=== PATIENT | female | born 1960 | race Caucasian/White ===

== ENCOUNTER 2020-02-10 16:34 | Emergency (ER) | payer MEDICARE ==
[~2020-02-10] VITALS: Ht 160 cm; Wt 47.6 kg
[2020-02-10 17:47] LABS: BASOPHILS ABSOLUTE AUTO 0.02 K/mm3 (0.00-0.23); BASOPHILS PERCENT AUTO 0 % (0-2); EOSINOPHILS PERCENT AUTO 0 % (0-6); Hematocrit 39.2 % (33.0-51.0); Hemoglobin 13.3 g/dL (11.5-16.0); IMMATURE GRAN ABSOLUTE AUTO 0.04 K/mm3 (0.00-0.10); IMMATURE GRAN PERCENT AUTO 0 % (0-1); LYMPHOCYTES ABSOLUTE AUTO 1.14 K/mm3 (0.84-5.20); LYMPHOCYTES PERCENT AUTO 8 % (21-46); MONOCYTES ABSOLUTE AUTO 1.13 K/mm3 (0.16-1.47); MONOCYTES PERCENT AUTO 8 % (4-13); Mean Corpuscular HGB 30.8 pg (26.0-34.0); Mean Corpuscular HGB Conc 33.9 g/dL (31.5-36.5); Mean Corpuscular Volume 91 fL (80-100); Mean Platelet Volume 9.8 fL (9.1-12.4); NEUTROPHILS ABSOLUTE AUTO 12.36 K/mm3 (1.96-9.15); NEUTROPHILS PERCENT AUTO 84 % (41-73); Platelet Count 222 K/mm3 (150-400); RDW Coefficient Variation 11.9 % (11.7-14.2); RDW Standard Deviation 40.1 fL (35.1-46.3); Red Blood Cell Count 4.32 M/mm3 (3.80-5.20); White Blood Cell Count 14.69 K/mm3 (4.00-11.30)
[2020-02-10 18:05] LABS: Albumin, Blood 4.2 g/dL (3.4-5.0); Albumin/Globulin Ratio 1.3 (0.8-1.8); Bilirubin, Total 0.8 mg/dL (0.1-1.0); Bun/Creatinine Ratio 11.2 (12.0-20.0); Calcium, Blood 9.3 mg/dL (8.5-10.1); Creatinine, Blood 1.34 mg/dL (0.40-1.00); Globulin, Blood 3.2 g/dL (2.2-4.0); Magnesium, Blood 2.6 mg/dL (1.6-2.4); Potassium, Blood 3.6 mmol/L (3.5-5.5); Total Protein, Blood 7.4 g/dL (6.4-8.2)
[2020-02-11] MEDS ORDERED: GABAPENTIN CAP 100 (16:59)
[2020-02-11] MEDS ORDERED: OMNICAP TABLET0.4 MG PO (16:59)
[2020-02-11] MEDS ORDERED: Methotrexate2.5 MG PO (16:59)
[2020-02-11] MEDS ORDERED: Keppra750 MG PO (16:59)
[2020-02-11] MEDS ORDERED: TRAZODONE TAB 50M (16:59)
== END 2020-02-10 19:51 | disposition home or self-care (01) ==
LOC: ER 16:34
PROVIDERS: Emergency Medicine
DX: R51 Headache (principal); R42 Dizziness and giddiness; N28.9 Disorder of kidney and ureter, unspecified; F17.200 Nicotine dependence, unspecified, uncomplicated
CPT/HCPCS: 70450; 80053; 83735; 85025; 99284-25

== ENCOUNTER 2020-02-11 16:32 | Emergency (ER) | payer MEDICARE ==
[2020-02-11] MEDS ORDERED: Methotrexate2.5 MG PO (16:59)
[2020-02-11] MEDS ORDERED: TRAZODONE TAB 50M (16:59)
[2020-02-11] MEDS ORDERED: OMNICAP TABLET0.4 MG PO (16:59)
[2020-02-11] MEDS ORDERED: GABAPENTIN CAP 100 (16:59)
[2020-02-11] MEDS ORDERED: Keppra750 MG PO (16:59)
== END 2020-02-11 17:40 | disposition home or self-care (01) ==
DX: S90.822A Blister (nonthermal), left foot, initial encounter (principal); S90.821A Blister (nonthermal), right foot, initial encounter; F20.9 Schizophrenia, unspecified; Z79.899 Other long term (current) drug therapy; F17.210 Nicotine dependence, cigarettes, uncomplicated; X58.XXXA Exposure to other specified factors, initial encounter

== ENCOUNTER 2021-01-27 19:24 | Emergency (ER) | payer MEDICARE, OTHER ==
[~2021-01-27] VITALS: Ht 160 cm; Wt 45.4 kg
[~2021-01-27 19:24] MED LIST: GABAPENTIN CAP 100; Keppra750 MG PO; Methotrexate2.5 MG PO; Micro-K8 MEQ PO; OLAN10 PO; OLAN5 PO; OMNICAP TABLET0.4 MG PO; TRAZODONE TAB 50M
[2021-01-27] MEDS ORDERED: PHENY100ER PO (20:41)
[2021-01-27] MEDS ORDERED: GABA100 PO (20:42)
[2021-01-27 20:47] LABS: BASOPHILS ABSOLUTE AUTO 0.03 K/mm3 (0.00-0.23); BASOPHILS PERCENT AUTO 0 % (0-2); EOSINOPHILS ABSOLUTE AUTO 0.32 K/mm3 (0.00-0.68); EOSINOPHILS PERCENT AUTO 5 % (0-6); Hematocrit 36.2 % (33.0-51.0); Hemoglobin 12.2 g/dL (11.5-16.0); IMMATURE GRAN ABSOLUTE AUTO 0.02 K/mm3 (0.00-0.10); IMMATURE GRAN PERCENT AUTO 0 % (0-1); LYMPHOCYTES ABSOLUTE AUTO 1.53 K/mm3 (0.84-5.20); LYMPHOCYTES PERCENT AUTO 22 % (21-46); MONOCYTES ABSOLUTE AUTO 0.49 K/mm3 (0.16-1.47); MONOCYTES PERCENT AUTO 7 % (4-13); Mean Corpuscular HGB 30.4 pg (26.0-34.0); Mean Corpuscular HGB Conc 33.7 g/dL (31.5-36.5); Mean Corpuscular Volume 90 fL (80-100); Mean Platelet Volume 10.4 fL (9.1-12.4); NEUTROPHILS ABSOLUTE AUTO 4.48 K/mm3 (1.96-9.15); NEUTROPHILS PERCENT AUTO 65 % (41-73); Platelet Count 208 K/mm3 (150-400); RDW Coefficient Variation 11.9 % (11.7-14.2); RDW Standard Deviation 39.5 fL (35.1-46.3); Red Blood Cell Count 4.01 M/mm3 (3.80-5.20); White Blood Cell Count 6.87 K/mm3 (4.00-11.30)
[2021-01-27 21:03] LABS: Alanine Aminotransfer (ALT/SGP 36 U/L (12-78); Albumin, Blood 3.6 g/dL (3.4-5.0); Albumin/Globulin Ratio 1.2 (0.8-1.8); Alk Phos 83 U/L (50-136); Anion Gap 3 mmol/L (6-16); Aspartate Aminotrans (AST/SGOT 30 U/L (12-37); Bilirubin, Total 0.3 mg/dL (0.1-1.0); Blood Urea Nitrogen 8 mg/dL (8-24); Bun/Creatinine Ratio 11.3 (12.0-20.0); CO2, Blood 31 mmol/L (21-32); Calcium, Blood 8.6 mg/dL (8.5-10.1); Chloride, Blood 106 mmol/L (98-108); Creatinine, Blood 0.71 mg/dL (0.40-1.00); Glomerular Filtration Rate >60 (60-); Glucose, Blood 86 mg/dL (70-99); Potassium, Blood 3.4 mmol/L (3.5-5.5); Sodium, Blood 140 mmol/L (136-145); Total Protein, Blood 6.6 g/dL (6.4-8.2); Troponin I <0.015 ng/mL (0.000-0.040)
== END 2021-01-27 21:42 | disposition home or self-care (01) ==
LOC: ER 19:24
PROVIDERS: Emergency Medicine
DX: R07.9 Chest pain, unspecified (principal); F17.210 Nicotine dependence, cigarettes, uncomplicated; Z79.899 Other long term (current) drug therapy
CPT/HCPCS: 71045; 80053; 84484; 85025; 93005; 93010; 99284-25

== ENCOUNTER 2021-06-03 15:06 | Observation (INO) | payer MEDICARE, OTHER ==
[~2021-06-03] VITALS: Ht 160 cm; Wt 45.4 kg
[~2021-06-03 15:06] MED LIST changes: +GABA100 PO; +PHENY100ER PO
[2021-06-03] MEDS ORDERED: TRAZ50 PO (16:14)
[2021-06-03] MEDS ORDERED: GABA100 PO (16:14)
[2021-06-03 16:54] LABS: Source, Urine Clean Catch
[2021-06-03 16:59] LABS: Appearance, Urine Clear (Clear); Bilirubin, Urine Neg (Neg); Blood, Urine Neg (Neg); Color, Urine Yellow (P-Yellow); Glucose Qualitative, Urine Neg (Neg); Ketones, Urine Neg (Neg); Leukocyte Esterase, Urine Neg (Neg); Nitrite, Urine Neg (Neg); Protein, Urine Neg (Neg); Specific Gravity, Urine 1.015 (1.003-1.022); Urobilinogen, Urine NORM (Normal)
[2021-06-03 17:13] LABS: U Amphetamine Screen Not Detected; U Barbituate Screen Not Detected; U Benzodiazapine Screen Not Detected; U Buprenorphine Screen Not Detected; U Cannabinoids Screen Not Detected; U Cocaine Screen Not Detected; U Methadone Screen Not Detected; U Methamphetamine Screen Not Detected; U Opiates Screen Not Detected; U Oxycodone Screen Not Detected; U Phencyclidine Screen Not Detected; U Propoxyphene Screen Not Detected
[2021-06-03 17:32] LABS: BASOPHILS ABSOLUTE AUTO 0.03 K/mm3 (0.00-0.23); BASOPHILS PERCENT AUTO 0 % (0-2); EOSINOPHILS ABSOLUTE AUTO 0.25 K/mm3 (0.00-0.68); EOSINOPHILS PERCENT AUTO 3 % (0-6); Hematocrit 38.2 % (33.0-51.0); Hemoglobin 12.9 g/dL (11.5-16.0); IMMATURE GRAN ABSOLUTE AUTO 0.01 K/mm3 (0.00-0.10); IMMATURE GRAN PERCENT AUTO 0 % (0-1); LYMPHOCYTES ABSOLUTE AUTO 1.19 K/mm3 (0.84-5.20); LYMPHOCYTES PERCENT AUTO 16 % (21-46); MONOCYTES ABSOLUTE AUTO 0.45 K/mm3 (0.16-1.47); MONOCYTES PERCENT AUTO 6 % (4-13); Mean Corpuscular HGB 30.6 pg (26.0-34.0); Mean Corpuscular HGB Conc 33.8 g/dL (31.5-36.5); Mean Corpuscular Volume 91 fL (80-100); Mean Platelet Volume 9.9 fL (9.1-12.4); NEUTROPHILS ABSOLUTE AUTO 5.37 K/mm3 (1.96-9.15); NEUTROPHILS PERCENT AUTO 74 % (41-73); Platelet Count 221 K/mm3 (150-400); RDW Coefficient Variation 12.5 % (11.7-14.2); RDW Standard Deviation 41.2 fL (35.1-46.3); Red Blood Cell Count 4.21 M/mm3 (3.80-5.20)
[2021-06-03 18:12] LABS: Ethanol (Alcohol), Blood, Med <3 mg/dL
[2021-06-03 18:29] LABS: Acetaminophen, Random <2.0 ug/mL (10.0-30.0)
[2021-06-03 19:15] LABS: Alanine Aminotransfer (ALT/SGP 33 U/L (12-78); Albumin, Blood 4.5 g/dL (3.4-5.0); Albumin/Globulin Ratio 1.4 (0.8-1.8); Alk Phos 102 U/L (50-136); Anion Gap 6 mmol/L (6-16); Aspartate Aminotrans (AST/SGOT 22 U/L (12-37); Bilirubin, Total 0.6 mg/dL (0.1-1.0); Blood Urea Nitrogen 6 mg/dL (8-24); Bun/Creatinine Ratio 7.8 (12.0-20.0); CO2, Blood 26 mmol/L (21-32); Chloride, Blood 108 mmol/L (98-108); Creatinine, Blood 0.77 mg/dL (0.40-1.00); Globulin, Blood 3.2 g/dL (2.2-4.0); Glomerular Filtration Rate >60 (60-); Glucose, Blood 94 mg/dL (70-99); Potassium, Blood 3.2 mmol/L (3.5-5.5); Sodium, Blood 140 mmol/L (136-145); Total Protein, Blood 7.7 g/dL (6.4-8.2)
[2021-06-03 19:35] LABS: SARS-Cov-2 (COVID-19) PCR, MMC NEGATIVE (NEGATIVE)
== END 2021-06-04 15:00 ==
LOC: ER 15:06 → EOR 15:07
PROVIDERS: Emergency Medicine Emergency Medical Services; ADMIT Student in an Organized Health Care Education/Training Program
DX: F20.9 Schizophrenia, unspecified (principal); F17.210 Nicotine dependence, cigarettes, uncomplicated; Z20.822 Contact with and (suspected) exposure to COVID-19; G40.409 Other generalized epilepsy and epileptic syndromes, not intractable, without status epilepticus; L93.0 Discoid lupus erythematosus
CPT/HCPCS: 80053; 81003; 85025; A9270; G0480; J1200; J1630; J2060; U0004

== ENCOUNTER 2022-12-24 18:47 | Observation (INO) | payer MEDICARE, OTHER ==
[~2022-12-24] VITALS: Ht 160 cm; Wt 49.9 kg
[~2022-12-24 18:47] MED LIST changes: +TRAZ50 PO
[2022-12-24] MEDS ORDERED: RISP3 PO (19:25)
[2022-12-24] MEDS ORDERED: ATOR10 PO (19:25)
[2022-12-24] MEDS ORDERED: TRAZ100 PO (19:26)
[2022-12-24] MEDS ORDERED: GABA300 PO (19:26)
[2022-12-24 20:03] LABS: Source, Urine Clean Catch
[2022-12-24] MEDS ORDERED: TRAZ50 PO (20:06)
[2022-12-24 20:14] LABS: BASOPHILS ABSOLUTE AUTO 0.03 K/mm3 (0.00-0.23); BASOPHILS PERCENT AUTO 0 % (0-2); EOSINOPHILS ABSOLUTE AUTO 0.09 K/mm3 (0.00-0.68); EOSINOPHILS PERCENT AUTO 1 % (0-6); Hematocrit 39.5 % (33.0-51.0); Hemoglobin 13.3 g/dL (11.5-16.0); IMMATURE GRAN ABSOLUTE AUTO 0.02 K/mm3 (0.00-0.10); IMMATURE GRAN PERCENT AUTO 0 % (0-1); LYMPHOCYTES PERCENT AUTO 19 % (21-46); MONOCYTES ABSOLUTE AUTO 0.52 K/mm3 (0.16-1.47); MONOCYTES PERCENT AUTO 7 % (4-13); Mean Corpuscular HGB 30.2 pg (26.0-34.0); Mean Corpuscular HGB Conc 33.7 g/dL (31.5-36.5); Mean Corpuscular Volume 90 fL (80-100); Mean Platelet Volume 9.5 fL (9.1-12.4); NEUTROPHILS ABSOLUTE AUTO 5.59 K/mm3 (1.96-9.15); NEUTROPHILS PERCENT AUTO 72 % (41-73); Platelet Count 271 K/mm3 (150-400); RDW Coefficient Variation 12.9 % (11.7-14.2); Red Blood Cell Count 4.41 M/mm3 (3.80-5.20); White Blood Cell Count 7.75 K/mm3 (4.00-11.30)
[2022-12-24 20:24] LABS: Bilirubin, Urine Neg (Neg); Blood, Urine Neg (Neg); Glucose Qualitative, Urine Neg (Neg); Ketones, Urine 2+ (Neg); Leukocyte Esterase, Urine 1+ (Neg); Nitrite, Urine Neg (Neg); Protein, Urine 2+ (Neg); Urobilinogen, Urine 1+ (Normal)
[2022-12-24 20:45] LABS: Ethanol (Alcohol), Blood, Med <3 mg/dL; Salicylate 3.2 mg/dL (2.8-20.0)
[2022-12-24 20:47] LABS: U Amphetamine Screen Not Detected; U Barbituate Screen Not Detected; U Benzodiazapine Screen Not Detected; U Buprenorphine Screen Not Detected; U Cannabinoids Screen Not Detected; U Cocaine Screen Not Detected; U Methadone Screen Not Detected; U Methamphetamine Screen Not Detected; U Opiates Screen Not Detected; U Oxycodone Screen Not Detected; U Phencyclidine Screen Not Detected; U Propoxyphene Screen Not Detected
[2022-12-24 20:53] LABS: Appearance, Urine Hazy (Clear); Color, Urine Yellow (P-Yellow)
[2022-12-24 20:54] LABS: Amorphous Light (0-Heavy); Bacteria Rare /hpf; Mucus Mod (0-Heavy); Red Blood Cells, Urine Not Seen /hpf (0-2); Squamous Epithelial Cells Few /hpf (Few); White Blood Cells, Urine 0-2 /hpf (0-5)
[2022-12-24 21:03] LABS: Acetaminophen, Random <2.0 ug/mL (10.0-30.0); Alanine Aminotransfer (ALT/SGP 27 U/L (12-78); Albumin, Blood 4.4 g/dL (3.4-5.0); Albumin/Globulin Ratio 1.1 (0.8-1.8); Alk Phos 114 U/L (50-136); Anion Gap 5 mmol/L (6-16); Aspartate Aminotrans (AST/SGOT 19 U/L (12-37); Bilirubin, Total 0.6 mg/dL (0.1-1.0); Blood Urea Nitrogen 11 mg/dL (8-24); Bun/Creatinine Ratio 15.8 (12.0-20.0); CO2, Blood 28 mmol/L (21-32); Calcium, Blood 9.3 mg/dL (8.5-10.1); Chloride, Blood 107 mmol/L (98-108); Globulin, Blood 3.9 g/dL (2.2-4.0); Glomerular Filtration Rate 99 (60-); Glucose, Blood 95 mg/dL (70-99); Potassium, Blood 3.7 mmol/L (3.5-5.5); Sodium, Blood 140 mmol/L (136-145); Total Protein, Blood 8.3 g/dL (6.4-8.2)
[2022-12-24 21:19] LABS: Influenza A, PCR NEGATIVE (NEGATIVE); Influenza B, PCR NEGATIVE (NEGATIVE); Resp Syncytial Virus, PCR NEGATIVE (NEGATIVE); SARS-Cov-2 (COVID-19) PCR, MMC NEGATIVE (NEGATIVE)
== END 2022-12-26 18:37 ==
LOC: ER 18:47 → EOR 18:48
PROVIDERS: Student in an Organized Health Care Education/Training Program; ADMIT Student in an Organized Health Care Education/Training Program
DX: R45.851 Suicidal ideations (principal); Z20.822 Contact with and (suspected) exposure to COVID-19
CPT/HCPCS: 0241U; 80053; 81001; 81025; 83690; 85025; 93005; 93010; A9270; G0378; G0480

== ENCOUNTER 2023-01-26 03:08 | Emergency (ER) | payer MEDICARE, OTHER ==
[~2023-01-26] VITALS: Ht 160 cm; Wt 57.1 kg
[~2023-01-26 03:08] MED LIST changes: +ATOR10 PO; +GABA300 PO; +RISP3 PO; +TRAZ100 PO
[2023-01-26] MEDS ORDERED: METR500 PO (04:13)
[2023-01-26 05:32] VITALS: BP 141/72
== END 2023-01-26 09:52 | disposition home or self-care (01) ==
LOC: ER 03:08
DX: T74.21XA Adult sexual abuse, confirmed, initial encounter (principal); F17.210 Nicotine dependence, cigarettes, uncomplicated; Z79.899 Other long term (current) drug therapy
CPT/HCPCS: A9270; J0696

== ENCOUNTER → 2023-02-11 | Outpatient (CLI) | payer MEDICARE ==
[~2023-02-11] MED LIST changes: +DOC250 PO; +METR500; +METR500 PO; +MIRALAX1714 PO; +PRAHYD1AE TOP; +TRUVADA 100 MG1 EAC1 PO
== END | disposition home or self-care (01) ==
LOC: LAB SHORT 13:30 → LAB 13:30
DX: R82.998 Other abnormal findings in urine (principal)
CPT/HCPCS: 87086

== ENCOUNTER 2023-11-03 13:28 | Emergency (ER) | payer MEDICARE, OTHER ==
[~2023-11-03] VITALS: Ht 160 cm; Wt 45.4 kg
[2023-11-03] MEDS ORDERED: NAPR500EC (13:54)
[2023-11-03] MEDS ORDERED: CefTRIAXone 500 MG Vial IM ONE (14:50)
[2023-11-03] MEDS ORDERED: Azithromycin 250 MG Tab PO ONE (14:50)
[2023-11-03] MEDS ORDERED: MetroNIDAZOLE 500 MG Tab PO ONE (14:50)
[2023-11-03] MEDS ORDERED: Ondansetron 4 MG SoluTab MM ONE (14:50)
[2023-11-03] MEDS ORDERED: Acetaminophen 500 MG Tab PO ONE (14:50)
[2023-11-03 14:55] LABS: Source, Urine Clean Catch
[2023-11-03 15:03] LABS: Appearance, Urine Clear (Clear); Bilirubin, Urine Neg (Neg); Blood, Urine Neg (Neg); Glucose Qualitative, Urine Neg (Neg); Ketones, Urine Neg (Neg); Leukocyte Esterase, Urine 2+ (Neg); Nitrite, Urine Neg (Neg); Protein, Urine 1+ (Neg); Urobilinogen, Urine NORM (Normal); pH, Urine 6.5 (5.0-8.0)
[2023-11-03 15:25] LABS: Color, Urine Pale Yellow (P-Yellow)
[2023-11-03 15:26] LABS: Bacteria Few /hpf; Red Blood Cells, Urine 0-2 /hpf (0-2); Squamous Epithelial Cells Few /hpf (Few)
[2023-11-03 15:27] LABS: Transitional Epithelial Cells Rare /hpf (0-Rare)
[2023-11-03 15:30] LABS: U Amphetamine Screen Not Detected; U Barbituate Screen Not Detected; U Benzodiazapine Screen Not Detected; U Buprenorphine Screen Not Detected; U Cannabinoids Screen Not Detected; U Cocaine Screen Not Detected; U Methadone Screen Not Detected; U Methamphetamine Screen Not Detected; U Opiates Screen Not Detected; U Oxycodone Screen Not Detected; U Phencyclidine Screen Not Detected
[2023-11-03] MEDS ORDERED: EMTRICITABINE-1 EAC5 PO ×2 (15:36→15:37)
[2023-11-03] MEDS ORDERED: [UNRECOGNIZED DRUG - OTHER] PO ×2 (15:36→15:37)
[2023-11-03 16:15] VITALS: BP 129/66
[2023-11-03 16:17] LABS: BASOPHILS ABSOLUTE AUTO 0.04 K/mm3 (0.00-0.23); BASOPHILS PERCENT AUTO 1 % (0-2); EOSINOPHILS ABSOLUTE AUTO 0.41 K/mm3 (0.00-0.68); EOSINOPHILS PERCENT AUTO 6 % (0-6); Hematocrit 38.6 % (33.0-51.0); Hemoglobin 12.9 g/dL (11.5-16.0); IMMATURE GRAN ABSOLUTE AUTO 0.01 K/mm3 (0.00-0.10); IMMATURE GRAN PERCENT AUTO 0 % (0-1); LYMPHOCYTES ABSOLUTE AUTO 1.48 K/mm3 (0.84-5.20); LYMPHOCYTES PERCENT AUTO 21 % (21-46); MONOCYTES ABSOLUTE AUTO 0.33 K/mm3 (0.16-1.47); MONOCYTES PERCENT AUTO 5 % (4-13); Mean Corpuscular HGB 29.4 pg (26.0-34.0); Mean Corpuscular HGB Conc 33.4 g/dL (31.5-36.5); Mean Corpuscular Volume 88 fL (80-100); NEUTROPHILS ABSOLUTE AUTO 4.75 K/mm3 (1.96-9.15); NEUTROPHILS PERCENT AUTO 68 % (41-73); Platelet Count 232 K/mm3 (150-400); RDW Coefficient Variation 12.4 % (11.7-14.2); RDW Standard Deviation 40.5 fL (35.1-46.3); Red Blood Cell Count 4.39 M/mm3 (3.80-5.20); White Blood Cell Count 7.02 K/mm3 (4.00-11.30)
[2023-11-03 16:40] LABS: Anion Gap Unable to Calculate mmol/L (6-16); Blood Urea Nitrogen 12 mg/dL (8-24); Bun/Creatinine Ratio 17.9 (12.0-20.0); CO2, Blood 31 mmol/L (21-32); Calcium, Blood 9.6 mg/dL (8.5-10.1); Chloride, Blood 109 mmol/L (98-108); Creatinine, Blood 0.67 mg/dL (0.40-1.00); Glomerular Filtration Rate 99 (60-); Glucose, Blood 139 mg/dL (70-99); Sodium, Blood 139 mmol/L (136-145)
[2023-11-03] MEDS ORDERED: Metoclopramide HCl 10 MG Tab PO ONE (17:25)
[2023-11-03] MEDS ORDERED: Ibuprofen 600 MG Tab PO ONE (17:30)
[2023-11-03 17:51] LABS: Alanine Aminotransfer (ALT/SGP 23 U/L (12-78); Albumin/Globulin Ratio 1.1 (0.8-1.8); Alk Phos 143 U/L (50-136); Aspartate Aminotrans (AST/SGOT 19 U/L (12-37); Bilirubin, Direct <0.1 mg/dL (0.0-0.3); Bilirubin, Indirect Unable to Calculate mg/dL (0.1-0.7); Bilirubin, Total 0.3 mg/dL (0.1-1.0); Globulin, Blood 3.6 g/dL (2.2-4.0); Total Protein, Blood 7.6 g/dL (6.4-8.2)
== END 2023-11-03 17:37 | disposition home or self-care (01) ==
LOC: ER 13:28
PROVIDERS: Student in an Organized Health Care Education/Training Program
DX: T76.21XA Adult sexual abuse, suspected, initial encounter (principal); S16.1XXA Strain of muscle, fascia and tendon at neck level, initial encounter; S09.90XA Unspecified injury of head, initial encounter; S80.02XA Contusion of left knee, initial encounter; J20.8 Acute bronchitis due to other specified organisms; B97.89 Other viral agents as the cause of diseases classified elsewhere; M48.02 Spinal stenosis, cervical region; F17.210 Nicotine dependence, cigarettes, uncomplicated; M06.9 Rheumatoid arthritis, unspecified; Z79.899 Other long term (current) drug therapy; Y07.9 Unspecified perpetrator of maltreatment and neglect; Y92.009 Unspecified place in unspecified non-institutional (private) residence as the place of occurrence of the external cause; Y93.84 Activity, sleeping
CPT/HCPCS: 70450; 71045; 72125; 80048; 80076; 81001; 85025; 96372; A9270; J0696

== ENCOUNTER 2024-01-26 20:46 | Emergency (ER) | payer MEDICARE, OTHER ==
[~2024-01-26] VITALS: Ht 157.5 cm; Wt 54.4 kg
[~2024-01-26 20:46] MED LIST changes: +EMTRICITABINE-1 EAC5 PO; +LOPE2C PO; +NAPR500EC; +[UNRECOGNIZED DRUG - OTHER] PO
[2024-01-26] MEDS ORDERED: METPRE4DP PO (20:58)
[2024-01-26] MEDS ORDERED: HYDROCODONE-AC1 EA19 PO (20:58)
[2024-01-26] MEDS ORDERED: MetroNIDAZOLE 500 MG Tab PO ONE (22:00)
[2024-01-26] MEDS ORDERED: CefTRIAXone 500 MG Vial IM ONE (22:00)
[2024-01-26] MEDS ORDERED: Azithromycin 250 MG Tab PO ONE (22:00)
[2024-01-26] MEDS ORDERED: Emtricitabine/Tenofovir (TDF) 200-300mg 1 TAB PO ONE (22:05)
[2024-01-26] MEDS ORDERED: EMTRICITABINE-1 EAC1 PO (22:14)
[2024-01-26] MEDS ORDERED: Vibramycin100 MG PO (22:14)
[2024-01-26] MEDS ORDERED: RALT400 PO (22:14)
[2024-01-26 22:47] VITALS: BP 159/73
== END 2024-01-26 22:49 | disposition home or self-care (01) ==
LOC: ER 20:46
DX: T76.21XA Adult sexual abuse, suspected, initial encounter (principal); S70.11XA Contusion of right thigh, initial encounter; Z79.899 Other long term (current) drug therapy; M06.9 Rheumatoid arthritis, unspecified; F17.210 Nicotine dependence, cigarettes, uncomplicated
CPT/HCPCS: 96372; 99284-25; A9270; J0696

== ENCOUNTER → 2024-03-06 | Outpatient (CLI) | payer MEDICARE, OTHER ==
[~2024-03-06] MED LIST changes: +EMTRICITABINE-1 EAC1 PO; +HYDROCODONE-AC1 EA19 PO; +METPRE4DP PO; +RALT400 PO; +Vibramycin100 MG PO
[2024-03-09 13:56] LABS: B PERTUSSIS/PARAPERTUSS SOURCE Nasopharyngeal; BORD PARAPERTUSSIS BY PCR Not Detected; BORDETELLA PERTUSSIS BY PCR Not Detected
== END | disposition home or self-care (01) ==
LOC: LAB 13:48 → LAB SHORT 13:48
PROVIDERS: Physician Assistant
DX: R05.1 Acute cough (principal); R50.9 Fever, unspecified
CPT/HCPCS: 87798

== ENCOUNTER 2024-04-08 19:38 | Emergency (ER) | payer MEDICARE, OTHER ==
[~2024-04-08] VITALS: Ht 160 cm; Wt 54.4 kg
[2024-04-08] MEDS ORDERED: FOLI1 PO (19:55)
[2024-04-08 20:12] LABS: BASOPHILS ABSOLUTE AUTO 0.04 K/mm3 (0.00-0.23); BASOPHILS PERCENT AUTO 1 % (0-2); EOSINOPHILS PERCENT AUTO 4 % (0-6); Hematocrit 29.9 % (33.0-51.0); Hemoglobin 10.2 g/dL (11.5-16.0); IMMATURE GRAN ABSOLUTE AUTO 0.02 K/mm3 (0.00-0.10); IMMATURE GRAN PERCENT AUTO 0 % (0-1); LYMPHOCYTES ABSOLUTE AUTO 1.38 K/mm3 (0.84-5.20); LYMPHOCYTES PERCENT AUTO 18 % (21-46); MONOCYTES ABSOLUTE AUTO 0.57 K/mm3 (0.16-1.47); MONOCYTES PERCENT AUTO 7 % (4-13); Mean Corpuscular HGB 31.7 pg (26.0-34.0); Mean Corpuscular HGB Conc 34.1 g/dL (31.5-36.5); Mean Corpuscular Volume 93 fL (80-100); NEUTROPHILS ABSOLUTE AUTO 5.37 K/mm3 (1.96-9.15); NEUTROPHILS PERCENT AUTO 70 % (41-73); Platelet Count 189 K/mm3 (150-400); RDW Coefficient Variation 13.5 % (11.7-14.2); RDW Standard Deviation 44.7 fL (35.1-46.3); Red Blood Cell Count 3.22 M/mm3 (3.80-5.20); White Blood Cell Count 7.68 K/mm3 (4.00-11.30)
[2024-04-08 20:23] LABS: Bun/Creatinine Ratio 15.3 (12.0-20.0); Calcium, Blood 8.5 mg/dL (8.5-10.1); Creatinine, Blood 0.79 mg/dL (0.40-1.00); Potassium, Blood 3.4 mmol/L (3.5-5.5)
[2024-04-08] MEDS ORDERED: Acetaminophen 325 MG TABLET PO ONE (21:15)
[2024-04-09 01:00] VITALS: BP 139/78
== END 2024-04-09 01:02 | disposition home or self-care (01) ==
LOC: ER 19:38
PROVIDERS: Emergency Medicine
DX: R07.89 Other chest pain (principal); F17.210 Nicotine dependence, cigarettes, uncomplicated; Z79.899 Other long term (current) drug therapy
CPT/HCPCS: 71046; 80048; 84484; 85025; 93005; 93010; 99285-25; A9270

== ENCOUNTER 2024-06-28 17:38 | Inpatient (IN) | payer MEDICARE, OTHER ==
[~2024-06-28] VITALS: Ht 160 cm; Wt 55.2 kg
[~2024-06-28 17:38] MED LIST changes: +DOXY100 PO; +FOLI1 PO; +Flagyl250 MG PO; +TENO300 PO
[2024-06-28 18:02] LABS: BASOPHILS ABSOLUTE AUTO 0.02 K/mm3 (0.00-0.23); BASOPHILS PERCENT AUTO 0 % (0-2); EOSINOPHILS ABSOLUTE AUTO 0.15 K/mm3 (0.00-0.68); EOSINOPHILS PERCENT AUTO 2 % (0-6); Hematocrit 37.3 % (33.0-51.0); Hemoglobin 12.6 g/dL (11.5-16.0); IMMATURE GRAN ABSOLUTE AUTO 0.02 K/mm3 (0.00-0.10); IMMATURE GRAN PERCENT AUTO 0 % (0-1); LYMPHOCYTES ABSOLUTE AUTO 1.05 K/mm3 (0.84-5.20); LYMPHOCYTES PERCENT AUTO 12 % (21-46); MONOCYTES ABSOLUTE AUTO 0.47 K/mm3 (0.16-1.47); MONOCYTES PERCENT AUTO 5 % (4-13); Mean Corpuscular HGB 30.9 pg (26.0-34.0); Mean Corpuscular HGB Conc 33.8 g/dL (31.5-36.5); Mean Corpuscular Volume 91 fL (80-100); Mean Platelet Volume 9.2 fL (9.1-12.4); NEUTROPHILS ABSOLUTE AUTO 7.05 K/mm3 (1.96-9.15); NEUTROPHILS PERCENT AUTO 81 % (41-73); Platelet Count 222 K/mm3 (150-400); RDW Coefficient Variation 12.4 % (11.7-14.2); Red Blood Cell Count 4.08 M/mm3 (3.80-5.20); White Blood Cell Count 8.76 K/mm3 (4.00-11.30)
[2024-06-28] MEDS ORDERED: Morphine Sulfate 4 MG/1 ML Injection IV ONE (18:05)
[2024-06-28] MEDS ORDERED: NS 1,000 ML IV SCH ×2 (18:05→22:35)
[2024-06-28] MEDS ORDERED: Ondansetron HCl 2 MG / ML 2ML Vial IV ONE (18:05)
[2024-06-28 18:16] LABS: Albumin, Blood 3.9 g/dL (3.4-5.0); Albumin/Globulin Ratio 1.1 (0.8-1.8); Bilirubin, Total 0.5 mg/dL (0.1-1.0); Bun/Creatinine Ratio 17.5 (12.0-20.0); Calcium, Blood 9.4 mg/dL (8.5-10.1); Creatinine, Blood 0.74 mg/dL (0.40-1.00); Globulin, Blood 3.4 g/dL (2.2-4.0); Potassium, Blood 3.7 mmol/L (3.5-5.5); Total Protein, Blood 7.3 g/dL (6.4-8.2)
[2024-06-28] MEDS ORDERED: Piperacillin/Tazobactam Sod 4.5 GM in NS 100 ML IV ONE (20:00)
[2024-06-28 20:55] LABS: Source, Urine Clean Catch
[2024-06-28 21:02] LABS: Appearance, Urine Clear (Clear); Bilirubin, Urine Neg (Neg); Blood, Urine 2+ (Neg); Color, Urine Yellow (P-Yellow); Glucose Qualitative, Urine Neg (Neg); Ketones, Urine 2+ (Neg); Leukocyte Esterase, Urine Neg (Neg); Nitrite, Urine Neg (Neg); Protein, Urine 1+ (Neg); Urobilinogen, Urine NORM (Normal)
[2024-06-28 21:27] LABS: Bacteria Rare /hpf; Squamous Epithelial Cells Few /hpf (Few); White Blood Cells, Urine 0-2 /hpf (0-5)
[2024-06-28] MEDS ORDERED: FLU VACC TS2024-25(6MOS UP)/PF 45 MCG/0.5 ML SYRINGE IM SCH (22:35)
[2024-06-28] MEDS ORDERED: Ondansetron HCl 2 MG / ML 2ML Vial IV PRN (22:35)
[2024-06-28] MEDS ORDERED: FentaNYL Citrate 50 MCG/ML 2 ML Injection IV PRN (22:40)
[2024-06-28] MEDS ORDERED: ATOR10 PO (23:42)
--- NOTE | 2024-06-29 00:14 | NUR ---
RECEIVED REPORT FOR PT COMING TO RM 357 FROM ER NURSE NOEMI.
--- NOTE | 2024-06-29 00:28 | NUR ---
ER ADMIT TO 357. PT ARRIVED VIA GURNEY. ALERT AND ORIENTED. ON RA. PT TRANSFERRED TO BED VIA SLIDER SHEET. PT ORIENTED TO AND CALL LT SYSTEM. WILL CONTINUE TO PROVIDE CARE T/O SHIFT. CALL LT IN REACH, BED ALARM ON FOR SAFETY.
[2024-06-29 00:45] VITALS: BP 123/67
--- NOTE | 2024-06-29 01:34 | NUR ---
CONSULT CALLED TO DR LILIYA JONES'S ANSWERING SERVICE.
[2024-06-29] MEDS ORDERED: TRAZ100 PO (01:47)
[2024-06-29] MEDS ORDERED: METHOTREXATE2.510 PO (01:48)
[2024-06-29] MEDS ORDERED: EMTRICITABINE-1 EAC5 PO (01:49)
[2024-06-29] MEDS ORDERED: [UNRECOGNIZED DRUG - CODE] PO (01:49)
[2024-06-29] MEDS ORDERED: FOLI1 PO (01:50)
[2024-06-29] MEDS ORDERED: RALT400 PO (01:52)
[2024-06-29] MEDS ORDERED: Gabapentin 100 MG Cap PO SCH (02:45)
--- NOTE | 2024-06-29 02:50 | NUR ---
GABAPENTIN 100 MG GIVEN TO PT. PT RESTING QUIETLY. CALL LT IN REACH. BED ALARMED FOR SAFETY.
[2024-06-29 03:12] VITALS: BP 142/68
--- NOTE | 2024-06-29 03:53 | NUR ---
SHIFT SUMMARY: ER ADMIT. A/O. STATES NEEDS APPROPRIATELY. ON RA. SINUS RHYTHM ON TELE AT 62. NS AT 100 MLS/HR TIMES 1 BAG. SBA TO 1PA BEDSIDE COMMODE. TAKES PILLS WHOLE WITH WATER WITHOUT DIFFICULTY. MEDICATED PT FOR ABD PAIN WITH IV FENTANYL, WITH PAIN RELIEF. HAD ONE BM WITH A SMALL AMOUNT OF BLOOD. NO ACUTE CHANGES. WILL CONTINUE TO PROVIDE CARE UNTIL SHIFT REPORT. CALL LT IN PLACE. BED ALARM ON.
[2024-06-29] MEDS ORDERED: Piperacillin/Tazobactam Sod 4.5 GM in NS 100 ML IV SCH (06:00)
[2024-06-29 06:19] LABS: BASOPHILS ABSOLUTE AUTO 0.03 K/mm3 (0.00-0.23); BASOPHILS PERCENT AUTO 0 % (0-2); EOSINOPHILS ABSOLUTE AUTO 0.25 K/mm3 (0.00-0.68); EOSINOPHILS PERCENT AUTO 2 % (0-6); Hematocrit 36.1 % (33.0-51.0); IMMATURE GRAN ABSOLUTE AUTO 0.05 K/mm3 (0.00-0.10); IMMATURE GRAN PERCENT AUTO 1 % (0-1); LYMPHOCYTES ABSOLUTE AUTO 1.14 K/mm3 (0.84-5.20); LYMPHOCYTES PERCENT AUTO 10 % (21-46); MONOCYTES PERCENT AUTO 5 % (4-13); Mean Corpuscular HGB 30.8 pg (26.0-34.0); Mean Corpuscular HGB Conc 33.2 g/dL (31.5-36.5); Mean Corpuscular Volume 93 fL (80-100); Mean Platelet Volume 8.9 fL (9.1-12.4); NEUTROPHILS ABSOLUTE AUTO 9.09 K/mm3 (1.96-9.15); NEUTROPHILS PERCENT AUTO 82 % (41-73); Platelet Count 185 K/mm3 (150-400); RDW Coefficient Variation 12.6 % (11.7-14.2); RDW Standard Deviation 42.5 fL (35.1-46.3); White Blood Cell Count 11.06 K/mm3 (4.00-11.30)
[2024-06-29 07:15] LABS: Albumin, Blood 3.6 g/dL (3.4-5.0); Albumin/Globulin Ratio 1.1 (0.8-1.8); Bilirubin, Total 0.6 mg/dL (0.1-1.0); Bun/Creatinine Ratio 13.4 (12.0-20.0); Calcium, Blood 8.8 mg/dL (8.5-10.1); Creatinine, Blood 0.67 mg/dL (0.40-1.00); Globulin, Blood 3.2 g/dL (2.2-4.0); Potassium, Blood 3.7 mmol/L (3.5-5.5); Total Protein, Blood 6.8 g/dL (6.4-8.2)
[2024-06-29 07:21] VITALS: BP 118/56
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
--- NOTE | 2024-06-29 13:52 | NUR ---
NOTE: DR. JONES CAME AT 1345 AND SPOKE TO PATIENT REGARDING PLAN OF CARE. PER DR. JONES NO SURGICAL INTERVENTION FOR NOW, CONTINUE IV ABX, CL DIET, NS AT 50 MLS/HR AND HE WILL COMMUNICATE c DR. GENAO.
[2024-06-29] MEDS ORDERED: NS 1,000 ML IV SCH (14:05)
[2024-06-29] MEDS ORDERED: TraMADol HCl 50 MG Tab PO PRN (14:10)
--- NOTE | 2024-06-29 16:20 | NUR ---
SHIFT SUMMARY: PATIENT A/OX4, PLEASANT AND COOPERATIVE c CARE. PATIENT DENIES CP/PRESSURE, N/V AND DIZZINESS. PATIENT ON TELE, SB/SR HR IN THE HIGH 50'S TO LOW 60'S BPM. PATIENT MEDICATED FOR PAIN TO MID ABDOMEN PER EMAR c GOOD EFFECT. PATIENT ON CL DIET, TOLERATED WELL, CONTINENT OF BOWEL/BLADDER, USES BSC c SBA. PATIENT HAD 2 BM CLEAR YELLOW LIQUID c SOME SMALL RED CLOTS. PATIENT RECEIVED IV ABX PER ORDER. PATIENT HAS PIV TO LAC, INFUSING NS AT 50 MLS/HR. VITAL SIGNS REVIEWED. CALL LIGHT IN REACH.
[2024-06-29 20:07] VITALS: BP 106/56
[2024-06-29] MEDS ORDERED: TraZODone HCl 100 MG Tab PO SCH (21:00)
--- NOTE | 2024-06-30 04:00 | NUR ---
SHIFT SUMMARY: PT ALERT ORIENTED X 4. ABLE TO VERBALIZE HER NEEDS. C/O ABD PAIN MEDICATED WITH TRAMADOL WITH GOOD PAIN RELIEF. REMAINS ON NS AT 50. REMAINS ON TELEMETRY AT SINUS CARLITA WITH A RATE OF 59. VSS. REMAINS ON RA SATTING WELL. SHE HAD ONE EPISODE OF BLOODY STOOLS. RESTING IN BED AT THIS TIME. NO C/O NAUSEA OR VOMITING.
[2024-06-30 05:18] VITALS: BP 100/53
[2024-06-30 06:37] LABS: BASOPHILS ABSOLUTE AUTO 0.03 K/mm3 (0.00-0.23); BASOPHILS PERCENT AUTO 1 % (0-2); EOSINOPHILS ABSOLUTE AUTO 0.37 K/mm3 (0.00-0.68); EOSINOPHILS PERCENT AUTO 7 % (0-6); Hematocrit 33.2 % (33.0-51.0); Hemoglobin 10.9 g/dL (11.5-16.0); IMMATURE GRAN ABSOLUTE AUTO 0.01 K/mm3 (0.00-0.10); IMMATURE GRAN PERCENT AUTO 0 % (0-1); LYMPHOCYTES ABSOLUTE AUTO 1.42 K/mm3 (0.84-5.20); LYMPHOCYTES PERCENT AUTO 25 % (21-46); MONOCYTES ABSOLUTE AUTO 0.39 K/mm3 (0.16-1.47); MONOCYTES PERCENT AUTO 7 % (4-13); Mean Corpuscular HGB 30.6 pg (26.0-34.0); Mean Corpuscular HGB Conc 32.8 g/dL (31.5-36.5); Mean Corpuscular Volume 93 fL (80-100); NEUTROPHILS ABSOLUTE AUTO 3.42 K/mm3 (1.96-9.15); NEUTROPHILS PERCENT AUTO 61 % (41-73); Platelet Count 174 K/mm3 (150-400); RDW Coefficient Variation 12.4 % (11.7-14.2); RDW Standard Deviation 42.9 fL (35.1-46.3); Red Blood Cell Count 3.56 M/mm3 (3.80-5.20); White Blood Cell Count 5.64 K/mm3 (4.00-11.30)
[2024-06-30 07:04] LABS: Bun/Creatinine Ratio 5.7 (12.0-20.0); Calcium, Blood 8.3 mg/dL (8.5-10.1); Creatinine, Blood 0.88 mg/dL (0.40-1.00); Potassium, Blood 3.5 mmol/L (3.5-5.5)
[2024-06-30 07:45] VITALS: BP 100/54
[2024-06-30] MEDS ORDERED: Atorvastatin 10 MG Tab PO SCH (09:00)
[2024-06-30 15:24] VITALS: BP 103/51
[2024-06-30 15:26] VITALS: BP 101/50
--- NOTE | 2024-06-30 17:17 | NUR ---
SHIFT SUMMARY: PATIENT A/OX4, PLEASANT AND COOPERATIVE c CARE. PATIENT DENIES CP/PRESSURE, SOB AND DIZZINESS. PATIENT HAS HAD NO EVENTS ON TELE, SR HR IN THE LOW 60'S-70'S BPM. PATIENT REPORTS OT EPISODE OF MILD NAUSEOUS THIS AM, BUT RESOLVED. PATIENT DIET WERE ADVANCED TO SOFT PER ORDER. PATIENT ATE 100% AT LUNCH TOLERATED WELL, DENIES N/V OR ABDOMINAL DISCOMFORT AFTER EATING. PATIENT HAD ONE CLEAR YELLOW LIQUID STOOL c SMALL CLOTS PARTICLES MIXED IN URINE. PATIENT PAIN TO ABDOMEN WELL CONTROLLED c EMAR PAIN MEDS. PATIENT RECEIVED IV ABX/SCHEDULED MEDS PER EMAR. VITAL SIGNS REVIEWED. CALL LIGHT IN REACH.
[2024-06-30 20:12] VITALS: BP 108/62
--- NOTE | 2024-07-01 04:02 | NUR ---
PT ALERT AND ORIENTED X4. C/O BACK PAIN. PT MEDICATED PER DR ORDERS. RESTING QUIETLY IN BED WITH EYES CLOSED AT THIS TIME. NO DISTRESS NOTED.
[2024-07-01 04:45] VITALS: BP 110/58
[2024-07-01 04:56] LABS: BASOPHILS ABSOLUTE AUTO 0.04 K/mm3 (0.00-0.23); BASOPHILS PERCENT AUTO 1 % (0-2); EOSINOPHILS ABSOLUTE AUTO 0.33 K/mm3 (0.00-0.68); EOSINOPHILS PERCENT AUTO 6 % (0-6); Hematocrit 31.5 % (33.0-51.0); Hemoglobin 10.4 g/dL (11.5-16.0); IMMATURE GRAN ABSOLUTE AUTO 0.02 K/mm3 (0.00-0.10); IMMATURE GRAN PERCENT AUTO 0 % (0-1); LYMPHOCYTES ABSOLUTE AUTO 1.43 K/mm3 (0.84-5.20); LYMPHOCYTES PERCENT AUTO 24 % (21-46); MONOCYTES ABSOLUTE AUTO 0.45 K/mm3 (0.16-1.47); MONOCYTES PERCENT AUTO 8 % (4-13); Mean Corpuscular HGB 30.5 pg (26.0-34.0); Mean Corpuscular Volume 92 fL (80-100); Mean Platelet Volume 9.1 fL (9.1-12.4); NEUTROPHILS ABSOLUTE AUTO 3.69 K/mm3 (1.96-9.15); NEUTROPHILS PERCENT AUTO 62 % (41-73); Platelet Count 163 K/mm3 (150-400); RDW Coefficient Variation 12.1 % (11.7-14.2); RDW Standard Deviation 41.2 fL (35.1-46.3); Red Blood Cell Count 3.41 M/mm3 (3.80-5.20); White Blood Cell Count 5.96 K/mm3 (4.00-11.30)
[2024-07-01 05:22] LABS: Albumin, Blood 3.1 g/dL (3.4-5.0); Albumin/Globulin Ratio 1.1 (0.8-1.8); Bilirubin, Total 0.4 mg/dL (0.1-1.0); Bun/Creatinine Ratio 8.7 (12.0-20.0); Calcium, Blood 8.3 mg/dL (8.5-10.1); Creatinine, Blood 0.81 mg/dL (0.40-1.00); Globulin, Blood 2.8 g/dL (2.2-4.0); Potassium, Blood 3.6 mmol/L (3.5-5.5); Total Protein, Blood 5.9 g/dL (6.4-8.2)
[2024-07-01 07:34] VITALS: BP 116/61
[2024-07-01] MEDS ORDERED: Menthol/Methyl Salicylate Crm 85 GM TUBE TOP PRN (11:15)
[2024-07-01] MEDS ORDERED: TRAM50 PO (15:10)
[2024-07-01] MEDS ORDERED: METR500 PO (15:11)
[2024-07-01] MEDS ORDERED: CIPR500 PO (15:11)
--- NOTE | 2024-07-01 15:32 | NUR ---
SHIFT SUMMARY: NO NEW CHANGES THIS SHIFT. PATIENT A/OX4, PLEASANT AND COOPERATIVE c CARE. PATIENT MEDICATED FOR PAIN TO ABDOMEN PER EMAR PRN PAIN MEDS c GOOD EFFECT. PATIENT TOLERATING SOFT DIET, CONTINENT OF BLADDER AND USES BSC/BATHROOM T/O SHIFT. PATIENT SHOWERED AND LINEN CHANGED. PATIENT RECEIVED SCHEDULED MEDS PER EMAR. PIV WAS DC'D BY SANJU FINE.
--- NOTE | 2024-07-01 15:32 | NUR ---
DISHCHARGE PT DISHCHARGED HOME VIA TAXI ARRANGED BY TRANSLATOR DEAF. RODY ZARATE BROUGHT PT OUT IN A WHEEL CHAIR. RN PROVIDED EDUCATION ON PT CONDITION, FOLLOW UP, AND CHANGES IN MEDICATIONS, PT STATES UNDERSTANDING.
--- NOTE | 2024-07-01 16:39 | NUR ---
PT IS ALL PACKED GRABBED ALL BELONGINGS, VAPE PIN AND LIGHT FROM RN, WHEELCHAIR PT TO THE CAB, CLEANED OUT THE ROOM
== END 2024-07-01 15:33 | disposition home or self-care (01) | DRG 387 ==
LOC: ER 17:38 → MEDS 22:33 → ERHOLD 22:33 → MEDS 06-29 00:27
PROVIDERS: Family Medicine Adult Medicine; Student in an Organized Health Care Education/Training Program; ADMIT Internal Medicine
DX: K51.311 Ulcerative (chronic) rectosigmoiditis with rectal bleeding (principal); F32.A Depression, unspecified; F41.9 Anxiety disorder, unspecified; M34.9 Systemic sclerosis, unspecified; M06.9 Rheumatoid arthritis, unspecified; M32.9 Systemic lupus erythematosus, unspecified; Z90.49 Acquired absence of other specified parts of digestive tract; F17.210 Nicotine dependence, cigarettes, uncomplicated; Z79.899 Other long term (current) drug therapy; G62.9 Polyneuropathy, unspecified; F22 Delusional disorders; G47.00 Insomnia, unspecified; Z23 Encounter for immunization
CPT/HCPCS: 36415; 74177; 80048; 80053; 81001; 83880; 84484; 85025; 86850; 86900; 86901; 93005; 93010; 96365-59; 96375; 99285-25; A9270; J2270; J2405; J2543; J3010; J7030; Q9967

== ENCOUNTER 2024-07-13 18:10 | Emergency (ER) | payer MEDICARE, OTHER ==
[~2024-07-13] VITALS: Ht 160 cm; Wt 52.2 kg
[~2024-07-13 18:10] MED LIST changes: +CIPR500 PO; +METHOTREXATE2.510 PO; +TRAM50 PO; +[UNRECOGNIZED DRUG - CODE] PO
[2024-07-13 18:54] LABS: BASOPHILS ABSOLUTE AUTO 0.04 K/mm3 (0.00-0.23); BASOPHILS PERCENT AUTO 1 % (0-2); EOSINOPHILS ABSOLUTE AUTO 0.25 K/mm3 (0.00-0.68); EOSINOPHILS PERCENT AUTO 4 % (0-6); Hematocrit 37.5 % (33.0-51.0); Hemoglobin 12.5 g/dL (11.5-16.0); IMMATURE GRAN ABSOLUTE AUTO 0.01 K/mm3 (0.00-0.10); IMMATURE GRAN PERCENT AUTO 0 % (0-1); LYMPHOCYTES ABSOLUTE AUTO 1.04 K/mm3 (0.84-5.20); LYMPHOCYTES PERCENT AUTO 17 % (21-46); MONOCYTES ABSOLUTE AUTO 0.34 K/mm3 (0.16-1.47); MONOCYTES PERCENT AUTO 6 % (4-13); Mean Corpuscular HGB 30.2 pg (26.0-34.0); Mean Corpuscular HGB Conc 33.3 g/dL (31.5-36.5); Mean Corpuscular Volume 91 fL (80-100); Mean Platelet Volume 9.3 fL (9.1-12.4); NEUTROPHILS ABSOLUTE AUTO 4.34 K/mm3 (1.96-9.15); NEUTROPHILS PERCENT AUTO 72 % (41-73); Platelet Count 232 K/mm3 (150-400); RDW Coefficient Variation 12.3 % (11.7-14.2); RDW Standard Deviation 41.3 fL (35.1-46.3); Red Blood Cell Count 4.14 M/mm3 (3.80-5.20); White Blood Cell Count 6.02 K/mm3 (4.00-11.30)
[2024-07-13 19:17] LABS: Albumin, Blood 4.2 g/dL (3.4-5.0); Albumin/Globulin Ratio 1.3 (0.8-1.8); Bilirubin, Total 0.6 mg/dL (0.1-1.0); Calcium, Blood 8.9 mg/dL (8.5-10.1); Creatinine, Blood 0.78 mg/dL (0.40-1.00); Globulin, Blood 3.3 g/dL (2.2-4.0); Potassium, Blood 3.1 mmol/L (3.5-5.5); Total Protein, Blood 7.5 g/dL (6.4-8.2)
[2024-07-13 21:39] LABS: Source, Urine Clean Catch
[2024-07-13 21:42] LABS: Appearance, Urine Clear (Clear); Bilirubin, Urine Neg (Neg); Blood, Urine Neg (Neg); Color, Urine Yellow (P-Yellow); Glucose Qualitative, Urine Neg (Neg); Ketones, Urine Neg (Neg); Leukocyte Esterase, Urine 2+ (Neg); Nitrite, Urine Neg (Neg); Protein, Urine Neg (Neg); Urobilinogen, Urine NORM (Normal)
[2024-07-13 21:54] LABS: Bacteria Few /hpf; Red Blood Cells, Urine Not Seen /hpf (0-2); Squamous Epithelial Cells Rare /hpf (Few)
[2024-07-13] MEDS ORDERED: Magnesium Oxide 400 MG Tab PO ONE (22:20)
[2024-07-13] MEDS ORDERED: Cephalexin Monohydrate 500 MG Cap PO ONE (22:20)
[2024-07-13] MEDS ORDERED: Gabapentin 100 MG Cap PO ONE (22:20)
[2024-07-13] MEDS ORDERED: Potassium Chloride 20 MEQ TabCR PO ONE (22:20)
[2024-07-13] MEDS ORDERED: CEPH500 PO (22:34)
[2024-07-13] MEDS ORDERED: POTA10T PO (22:34)
[2024-07-13 23:37] VITALS: BP 128/76
[2024-07-14] MEDS ORDERED: IBUP800 PO (15:17)
[2024-07-14] MEDS ORDERED: Robaxin750 MG PO (15:17)
[2024-07-14] MEDS ORDERED: Neurontin 300300 MG PO (15:17)
== END 2024-07-14 23:40 | disposition home or self-care (01) ==
LOC: ER 18:10
PROVIDERS: Student in an Organized Health Care Education/Training Program
DX: E87.6 Hypokalemia (principal); N39.0 Urinary tract infection, site not specified
CPT/HCPCS: 80053; 81001; 85025; 87077; 87086; 87186; 93005; 93010; 99284-25; A9270

== ENCOUNTER 2024-07-14 13:16 | Emergency (ER) | payer MEDICARE, OTHER ==
[~2024-07-14] VITALS: Ht 160 cm; Wt 49.9 kg
[~2024-07-14 13:16] MED LIST changes: +CEPH500 PO; +POTA10T PO
[2024-07-14 13:39] VITALS: BP 131/71
[2024-07-14] MEDS ORDERED: Ketorolac Tromethamine 30mg Vial IM ONE (14:25)
[2024-07-14] MEDS ORDERED: Gabapentin 300 MG Cap PO ONE (15:15)
[2024-07-14] MEDS ORDERED: Neurontin 300300 MG PO (15:17)
[2024-07-14] MEDS ORDERED: Robaxin750 MG PO (15:17)
[2024-07-14] MEDS ORDERED: IBUP800 PO (15:17)
== END 2024-07-14 15:33 | disposition home or self-care (01) ==
LOC: ER 13:16
DX: M54.10 Radiculopathy, site unspecified (principal); M25.551 Pain in right hip; Z79.899 Other long term (current) drug therapy; M06.9 Rheumatoid arthritis, unspecified; L93.0 Discoid lupus erythematosus; F17.210 Nicotine dependence, cigarettes, uncomplicated
CPT/HCPCS: 73502; 96372; 99283-25; A9270; J1885

== ENCOUNTER 2024-07-16 14:56 | Observation (INO) | payer MEDICARE, OTHER ==
[~2024-07-16] VITALS: Ht 160 cm; Wt 49.9 kg
[~2024-07-16 14:56] MED LIST changes: +IBUP800 PO; +Neurontin 300300 MG PO; +Robaxin750 MG PO
[2024-07-16 16:40] LABS: BASOPHILS ABSOLUTE AUTO 0.03 K/mm3 (0.00-0.23); BASOPHILS PERCENT AUTO 1 % (0-2); EOSINOPHILS ABSOLUTE AUTO 0.18 K/mm3 (0.00-0.68); EOSINOPHILS PERCENT AUTO 3 % (0-6); Hemoglobin 12.7 g/dL (11.5-16.0); IMMATURE GRAN ABSOLUTE AUTO 0.01 K/mm3 (0.00-0.10); IMMATURE GRAN PERCENT AUTO 0 % (0-1); LYMPHOCYTES ABSOLUTE AUTO 1.07 K/mm3 (0.84-5.20); LYMPHOCYTES PERCENT AUTO 18 % (21-46); MONOCYTES ABSOLUTE AUTO 0.37 K/mm3 (0.16-1.47); MONOCYTES PERCENT AUTO 6 % (4-13); Mean Corpuscular HGB 30.8 pg (26.0-34.0); Mean Corpuscular HGB Conc 33.4 g/dL (31.5-36.5); Mean Corpuscular Volume 92 fL (80-100); Mean Platelet Volume 9.5 fL (9.1-12.4); NEUTROPHILS ABSOLUTE AUTO 4.33 K/mm3 (1.96-9.15); NEUTROPHILS PERCENT AUTO 72 % (41-73); Platelet Count 252 K/mm3 (150-400); RDW Coefficient Variation 12.2 % (11.7-14.2); RDW Standard Deviation 41.3 fL (35.1-46.3); Red Blood Cell Count 4.13 M/mm3 (3.80-5.20); White Blood Cell Count 5.99 K/mm3 (4.00-11.30)
[2024-07-16 17:07] LABS: Ethanol (Alcohol), Blood, Med <3 mg/dL; Salicylate <1.7 mg/dL (2.8-20.0)
[2024-07-16 17:13] LABS: Acetaminophen, Random <2.0 ug/mL (10.0-30.0); Alanine Aminotransfer (ALT/SGP 17 U/L (12-78); Albumin, Blood 3.9 g/dL (3.4-5.0); Albumin/Globulin Ratio 1.1 (0.8-1.8); Alk Phos 100 U/L (50-136); Anion Gap 8 mmol/L (3-11); Aspartate Aminotrans (AST/SGOT 20 U/L (12-37); Bilirubin, Total 0.6 mg/dL (0.1-1.0); Blood Urea Nitrogen 12 mg/dL (8-24); Bun/Creatinine Ratio 12.8 (12.0-20.0); CO2, Blood 27 mmol/L (21-32); Calcium, Blood 9.3 mg/dL (8.5-10.1); Chloride, Blood 111 mmol/L (98-108); Creatinine, Blood 0.93 mg/dL (0.40-1.00); Globulin, Blood 3.4 g/dL (2.2-4.0); Glomerular Filtration Rate 69 (60-); Glucose, Blood 98 mg/dL (70-99); Potassium, Blood 4.4 mmol/L (3.5-5.5); Sodium, Blood 142 mmol/L (136-145); Total Protein, Blood 7.3 g/dL (6.4-8.2)
[2024-07-16 17:33] LABS: Influenza A, PCR NEGATIVE (NEGATIVE); Influenza B, PCR NEGATIVE (NEGATIVE); Resp Syncytial Virus, PCR NEGATIVE (NEGATIVE); SARS-Cov-2 (COVID-19) PCR, MMC NEGATIVE (NEGATIVE)
[2024-07-16 18:04] LABS: Source, Urine Clean Catch
[2024-07-16 18:24] LABS: Appearance, Urine Clear (Clear); Bilirubin, Urine Neg (Neg); Blood, Urine Neg (Neg); Color, Urine Yellow (P-Yellow); Glucose Qualitative, Urine Neg (Neg); Ketones, Urine Neg (Neg); Leukocyte Esterase, Urine Neg (Neg); Nitrite, Urine Neg (Neg); Protein, Urine Neg (Neg); Urobilinogen, Urine NORM (Normal)
[2024-07-16 18:37] LABS: U Amphetamine Screen Not Detected; U Barbituate Screen Not Detected; U Benzodiazapine Screen Not Detected; U Buprenorphine Screen Not Detected; U Cannabinoids Screen Not Detected; U Cocaine Screen Not Detected; U Methadone Screen Not Detected; U Methamphetamine Screen Not Detected; U Opiates Screen Not Detected; U Oxycodone Screen Not Detected; U Phencyclidine Screen Not Detected
[2024-07-16] MEDS ORDERED: Gabapentin 300 MG Cap PO ONE (19:10)
[2024-07-17] MEDS ORDERED: Methocarbamol 500 MG Tab PO ONE (00:10)
[2024-07-17 09:09] VITALS: BP 118/54
[2024-07-17] MEDS ORDERED: Gabapentin 300 MG Cap PO ONE (10:55)
== END 2024-07-17 16:33 | disposition other institution (70) ==
LOC: ER 14:56 → EOR 14:57
PROVIDERS: ADMIT Student in an Organized Health Care Education/Training Program
DX: R45.851 Suicidal ideations (principal); M06.9 Rheumatoid arthritis, unspecified; M32.9 Systemic lupus erythematosus, unspecified; F17.290 Nicotine dependence, other tobacco product, uncomplicated; Z79.899 Other long term (current) drug therapy; Z90.49 Acquired absence of other specified parts of digestive tract; Z59.00 Homelessness unspecified
CPT/HCPCS: 0241U; 80053; 80320; 81003; 81025; 85025; 93005; 93010; 99285-25; A9270; G0378; G0480

== ENCOUNTER 2024-07-17 14:06 | Inpatient (IN) | payer MEDICARE, OTHER ==
[~2024-07-17] VITALS: Ht 160 cm; Wt 50.0 kg
[2024-07-17 16:51] VITALS: BP 131/67
[2024-07-17] MEDS ORDERED: HydrOXYzine Pamoate 50 MG Cap PO PRN (16:55)
[2024-07-17] MEDS ORDERED: Ibuprofen 600 MG Tab PO PRN (17:00)
[2024-07-17] MEDS ORDERED: Melatonin 3 MG Tab PO PRN (17:00)
[2024-07-17] MEDS ORDERED: Acetaminophen 325 MG TABLET PO PRN (17:00)
[2024-07-17] MEDS ORDERED: Zolpidem Tartrate 5 MG Tab PO PRN (17:00)
[2024-07-17] MEDS ORDERED: Aluminum Hydroxide 320MG/5ML 473 ML PO PRN (17:00)
[2024-07-17] MEDS ORDERED: TraZODone HCl 50 MG Tab PO PRN (17:00)
[2024-07-17] MEDS ORDERED: FLU VACC TS2024-25(6MOS UP)/PF 45 MCG/0.5 ML SYRINGE IM SCH (17:00)
[2024-07-17 17:56] VITALS: BP 131/67
[2024-07-17] MEDS ORDERED: RisperiDONE 1 MG Tab PO SCH (21:00)
--- NOTE | 2024-07-18 04:14 | NUR ---
PATIENT WAS UP IN THE MILIEU AT THE BEGINNING OF THE SHIFT. SHE WAS COMPLIANT WITH EVENING MEDICATIONS BUT STATED THAT SHE DID NOT LIKE HAVING TO TAKE RISPERDAL AND AMBIEN. SHE WAS TOLD THAT THE AMBIEN IS PRN BUT SHE WOULD NEED TO TALK TO THE DR ABOUT THE RISPERDAL. SHE STATED THAT SHE WOULD DO SO. SHE WENT TO BED AND WAS NOTED TO BE QUIETLY RESTING WITH EYES CLOSED AND RESPIRATIONS CONFIRMED. SHE GOT UP X2 FOR MORE BLANKETS, STATING THAT SHE WAS COLD. SHE HAD NO S/SX SUICIDAL IDEATION OR SELF HARM THIS SHIFT.
[2024-07-18 08:27] VITALS: BP 122/78
[2024-07-18] MEDS ORDERED: Thiamine HCl 100 MG Tab PO SCH (09:00)
[2024-07-18] MEDS ORDERED: Folic Acid 1 MG TAB PO SCH (09:00)
[2024-07-18] MEDS ORDERED: Multivitamins 1 Tab PO SCH (09:00)
[2024-07-18] MEDS ORDERED: Gabapentin 300 MG Cap PO SCH (09:15)
[2024-07-18] MEDS ORDERED: ARIPiprazole 10 MG Tab PO SCH (12:00)
--- NOTE | 2024-07-18 19:10 | NUR ---
SHIFT SUMARRY PT AA&O TO PERSON AND PLACE. EYE CONTACT IS LIMITED. SPEECH IS DISORGANIZED.PT ASKING FOR PHONE TO COLLECT NUMBERS. PHONE IS BROKEN AND PT NEEDED REMINDERS. SHE IS COMPLIANT WITH MEDICATIONS. RISPERIDONE DC AND AMBILIFY STARTED. SHE DENIES SI. DOES REPORTS AH, VH BUT REPORTS IT IS IMPROVING. PY UP FOR [employer] MEALS AND GROUP. SHE DENIES ANY CURRENT NEEDS AT THIS TIME.
[2024-07-18 20:31] VITALS: BP 127/56
--- NOTE | 2024-07-19 04:02 | NUR ---
PATIENT WAS UP IN THE MILIEU AT THE BEGINNING OF THE SHIFT, INTERACTING WITH STAFF AND PEERS. SHE WAS PLEASANT AND COMPLIANT WITH CARES, INCLUDING EVENING MEDICATIONS. SHE KNEW WHAT HER MEDICATIONS WERE AND WHAT THEY WERE FOR. SHE WENT TO BED EARLY AND SPENT THE NIGHT IN BED RESTING QUIETLY WITH EYES CLOSED AND RESPIRATIONS CONFIRMED. SHE HAD NO S/SX SUICIDAL IDEATION OR SELF HARM THIS SHIFT.
[2024-07-19 07:57] VITALS: BP 125/69
[2024-07-19] MEDS ORDERED: ARIPiprazole 10 MG Tab PO ONE (10:25)
[2024-07-19] MEDS ORDERED: ARIPiprazole 5 MG Tab PO ONE (13:10)
--- NOTE | 2024-07-19 17:19 | NUR ---
SHIFT SUMMARY Pt is A&O x4, calm, cooperative, polite, eye contact is good. Pt denies SI, HI, and all hallucinations, adding that her AH has resolved; "the meds are working." Pt sated that she slept well last night. She endorsed left wrist pain 5/10w and received PRN APAP with morning meds. Pt requested toiletries and change of clothes so she could shower. Provider increased her ariprizone from 10mg to 20mg daily. Pt rested in her room throughout the day, but did particpate in groups and meals and spent some time in the TV room. Staff continues to monitor for safety and wellness.
[2024-07-19 19:35] VITALS: BP 129/51
--- NOTE | 2024-07-20 04:18 | NUR ---
PATIENT WAS AWAKE IN THE GROUP ROOM AT THE BEGINNING OF THE SHIFT, BUT WENT TO BED SHORTLY AFTER. SHE WAS AWAKENED FOR EVENING MEDICATIONS. SHE WAS PLEASANT AND COMPLIANT WITH CARES. SHE WAS MOSTLY IN BED RESTING WITH EYES CLOSED AND RESPIRATIONS CONFIRMED THIS SHIFT. SHE HAD NO S/SX SUICIDAL IDEATION OR SELF HARM THIS SHIFT. CONTINUING TO MONITOR Q15.
[2024-07-20] MEDS ORDERED: ARIPiprazole 10 MG Tab PO SCH (09:00)
--- NOTE | 2024-07-20 18:08 | NUR ---
SHIFT SUMMARY Pt is A&O, calm, cooperative, eye contact is good. Pt describes her mood as "okay, hopeful," affect is congruent with reported mood. Pt denies SI, HI, and hallucinations. She denies depression but endorses anxiety RT insurance coverage for this hospital stay. Pt reported that her sleep was interrupted with vivid dreams. Pt reported left wrist pain 5/10w. She was given PRN APAP and ibuprofen with no improvement. Pt was active on the unit throughout the day, participating in groups, watching TV, and interacting with the therapy dog. Pt told staff that she does not want to take the long acting injectables. Pt's aripiprazone has been increased to 30mg mandi. Staff continues q15m safety checks.
[2024-07-20 19:41] VITALS: BP 137/75
--- NOTE | 2024-07-21 05:57 | NUR ---
Patient spent most of the evening watching TV, coloring, and socializing with peers.They were cooperative with assessment. They took their scheduled medication and PRN melatonin without issue. They endorsed 2/10 anxiety due to not being able to get ahold of their landlord but denied other symptoms. They requested more tape on their wrist to provide pressure so a strip of cloth tape was added. They denied new concerns at this time. They are able to make their needs known. Plan of care ongoing. They appeared to be resting quietly in their bed for 8 hours.
[2024-07-21 08:18] VITALS: BP 127/57
[2024-07-21] MEDS ORDERED: ARIPiprazole 10 MG Tab PO SCH (09:00)
--- NOTE | 2024-07-21 14:40 | NUR ---
RX ORDERS FAXED TO [facility] FOR POSSIBLE DC 07/22.
[2024-07-21] MEDS ORDERED: Phenyleph/Mineral Oil/Petrolat 1 APPLIC/57 GM Tube PR PRN ×2 (16:05→16:10)
--- NOTE | 2024-07-21 17:52 | NUR ---
SHIFT NOTE: PT ALERT, ORIENTED AND COOPERATIVE THROUGH OUT SHIFT. SHE DENIED SI, HI OR AVH. MEDICATIONS ORDERS FOR PLANNED DISCHARGE ON 07/22. PT VISIBLE IN DEPT AND PARTICIPATED IN UNIT MILIEU.
[2024-07-21 20:26] VITALS: BP 121/58
--- NOTE | 2024-07-22 06:07 | NUR ---
Patient spent most of the evening resting in their room. They were cooperative with assessment. They took their scheduled medication and PRN melatonin and trazodone without issue. They denied any symptoms at this time. They denied new concerns at this time. They are able to make their needs known. Plan of care ongoing. They appeared to be sleeping quietly for 9 hours.
[2024-07-22 08:52] VITALS: BP 131/64
--- NOTE | 2024-07-22 10:35 | NUR ---
CALL PLACED TO [facility], CONFIRMED RX WILL BE READY IN ABOUT 1 HOUR. ARRANGEMENTS WILL BE MADE TO [employer] RX FOR PT PRIOR TO DISCHARGE.
[2024-07-22] MEDS ORDERED: ABILIFY MYCITE30 M2 PO (13:17)
--- NOTE | 2024-07-22 13:42 | NUR ---
DISCHARGE NOTE: RX PICKED UP FROM [facility]. CONFIRMED CONTENTS WITH FANTA MOHAMUD. PT BELONGINGS RETURNED BY DEXTER OG. PT DENIED SI, HI AND AVH. PT STATED UNDERSTANDING OF DISCHARGE INSTURCTIONS. PT AMBULATED OUT OF DEPT WITHOUT DIFFICULTY. DISHARGE INSTRUCTIONS, RX AND BELONGINGS IN HAND. DISCUSSED NEED TO FOLLOW UP WITH [facility] OPEN ACCESS ON TUESDAY MORNING TO ESTABLISH WITH MH PROVIDER. ENCOURAGED PT TO CONTACT HER PCP OFFICE FOR FOLLOW UP. PT STATED CLEAR UNDERSTANDING. [facility] IVE[facility] CALLED FOR RIDE HOME.
== END 2024-07-22 13:42 | disposition home or self-care (01) | DRG 885 ==
LOC: BHU 14:06
PROVIDERS: ADMIT Student in an Organized Health Care Education/Training Program
DX: F31.2 Bipolar disorder, current episode manic severe with psychotic features (principal); F41.9 Anxiety disorder, unspecified; M06.9 Rheumatoid arthritis, unspecified; Z85.118 Personal history of other malignant neoplasm of bronchus and lung; Z90.49 Acquired absence of other specified parts of digestive tract; Z98.890 Other specified postprocedural states; Z79.899 Other long term (current) drug therapy
CPT/HCPCS: A9270

== ENCOUNTER 2024-07-27 18:15 | Emergency (ER) | payer MEDICARE, OTHER ==
[~2024-07-27] VITALS: Ht 160 cm; Wt 68.0 kg
[~2024-07-27 18:15] MED LIST changes: +ABILIFY MYCITE30 M2 PO
[2024-07-27 18:40] LABS: BASOPHILS ABSOLUTE AUTO 0.05 K/mm3 (0.00-0.23); BASOPHILS PERCENT AUTO 1 % (0-2); EOSINOPHILS ABSOLUTE AUTO 0.35 K/mm3 (0.00-0.68); EOSINOPHILS PERCENT AUTO 5 % (0-6); Hematocrit 36.7 % (33.0-51.0); Hemoglobin 12.4 g/dL (11.5-16.0); IMMATURE GRAN ABSOLUTE AUTO 0.02 K/mm3 (0.00-0.10); IMMATURE GRAN PERCENT AUTO 0 % (0-1); LYMPHOCYTES ABSOLUTE AUTO 1.43 K/mm3 (0.84-5.20); LYMPHOCYTES PERCENT AUTO 20 % (21-46); MONOCYTES ABSOLUTE AUTO 0.54 K/mm3 (0.16-1.47); MONOCYTES PERCENT AUTO 8 % (4-13); Mean Corpuscular HGB 31.3 pg (26.0-34.0); Mean Corpuscular HGB Conc 33.8 g/dL (31.5-36.5); Mean Corpuscular Volume 93 fL (80-100); Mean Platelet Volume 9.4 fL (9.1-12.4); NEUTROPHILS PERCENT AUTO 66 % (41-73); Platelet Count 209 K/mm3 (150-400); RDW Coefficient Variation 12.4 % (11.7-14.2); RDW Standard Deviation 41.8 fL (35.1-46.3); Red Blood Cell Count 3.96 M/mm3 (3.80-5.20); White Blood Cell Count 7.09 K/mm3 (4.00-11.30)
[2024-07-27 20:18] LABS: Source, Urine Clean Catch
[2024-07-27 20:31] LABS: Appearance, Urine Clear (Clear); Bilirubin, Urine Neg (Neg); Blood, Urine Neg (Neg); Glucose Qualitative, Urine Neg (Neg); Ketones, Urine Neg (Neg); Leukocyte Esterase, Urine Neg (Neg); Nitrite, Urine Neg (Neg); Protein, Urine Neg (Neg); Urobilinogen, Urine NORM (Normal)
[2024-07-27 20:37] LABS: Color, Urine Pale Yellow (P-Yellow)
[2024-07-27 21:02] LABS: Albumin, Blood 4.1 g/dL (3.4-5.0); Albumin/Globulin Ratio 1.3 (0.8-1.8); Bilirubin, Total 0.2 mg/dL (0.1-1.0); Bun/Creatinine Ratio 10.6 (12.0-20.0); Calcium, Blood 9.6 mg/dL (8.5-10.1); Creatinine, Blood 0.75 mg/dL (0.40-1.00); Globulin, Blood 3.1 g/dL (2.2-4.0); Potassium, Blood 3.3 mmol/L (3.5-5.5); Total Protein, Blood 7.2 g/dL (6.4-8.2)
[2024-07-27 21:59] VITALS: BP 139/85
[2024-07-27] MEDS ORDERED: Voltaren100 GM TOP (22:44)
== END 2024-07-27 22:51 | disposition home or self-care (01) ==
LOC: ER 18:15
PROVIDERS: Emergency Medicine
DX: R10.84 Generalized abdominal pain (principal); R11.2 Nausea with vomiting, unspecified; M54.17 Radiculopathy, lumbosacral region; F17.290 Nicotine dependence, other tobacco product, uncomplicated; Z87.39 Personal history of other diseases of the musculoskeletal system and connective tissue; Z79.899 Other long term (current) drug therapy
CPT/HCPCS: 74177; 80053; 81003; 81025; 85025; 99284-25; Q9967

== ENCOUNTER 2024-08-06 00:20 | Emergency (ER) | payer MEDICARE, OTHER ==
[~2024-08-06] VITALS: Ht 160 cm; Wt 49.9 kg
[~2024-08-06 00:20] MED LIST changes: +Voltaren100 GM TOP
[2024-08-06] MEDS ORDERED: NS 1,000 ML IV SCH (00:55)
[2024-08-06 01:06] LABS: Source, Urine Clean Catch
[2024-08-06 01:08] LABS: BASOPHILS ABSOLUTE AUTO 0.04 K/mm3 (0.00-0.23); BASOPHILS PERCENT AUTO 1 % (0-2); EOSINOPHILS ABSOLUTE AUTO 0.45 K/mm3 (0.00-0.68); EOSINOPHILS PERCENT AUTO 6 % (0-6); Hemoglobin 11.6 g/dL (11.5-16.0); IMMATURE GRAN ABSOLUTE AUTO 0.02 K/mm3 (0.00-0.10); IMMATURE GRAN PERCENT AUTO 0 % (0-1); LYMPHOCYTES ABSOLUTE AUTO 1.22 K/mm3 (0.84-5.20); LYMPHOCYTES PERCENT AUTO 17 % (21-46); MONOCYTES ABSOLUTE AUTO 0.68 K/mm3 (0.16-1.47); MONOCYTES PERCENT AUTO 9 % (4-13); Mean Corpuscular HGB 30.8 pg (26.0-34.0); Mean Corpuscular HGB Conc 33.1 g/dL (31.5-36.5); Mean Corpuscular Volume 93 fL (80-100); Mean Platelet Volume 8.5 fL (9.1-12.4); NEUTROPHILS ABSOLUTE AUTO 4.94 K/mm3 (1.96-9.15); NEUTROPHILS PERCENT AUTO 67 % (41-73); Platelet Count 246 K/mm3 (150-400); RDW Coefficient Variation 12.7 % (11.7-14.2); RDW Standard Deviation 43.3 fL (35.1-46.3); Red Blood Cell Count 3.77 M/mm3 (3.80-5.20); White Blood Cell Count 7.35 K/mm3 (4.00-11.30)
[2024-08-06 01:15] VITALS: BP 119/67
[2024-08-06 01:16] LABS: Bilirubin, Urine Neg (Neg); Blood, Urine Neg (Neg); Glucose Qualitative, Urine Neg (Neg); Ketones, Urine Neg (Neg); Leukocyte Esterase, Urine 1+ (Neg); Nitrite, Urine Neg (Neg); Protein, Urine Neg (Neg); Specific Gravity, Urine 1.015 (1.003-1.022); Urobilinogen, Urine NORM (Normal); pH, Urine 6.5 (5.0-8.0)
[2024-08-06 01:27] LABS: Albumin, Blood 3.8 g/dL (3.4-5.0); Albumin/Globulin Ratio 1.2 (0.8-1.8); Bilirubin, Total 0.5 mg/dL (0.1-1.0); Bun/Creatinine Ratio 12.7 (12.0-20.0); Calcium, Blood 8.8 mg/dL (8.5-10.1); Creatinine, Blood 0.71 mg/dL (0.40-1.00); Globulin, Blood 3.1 g/dL (2.2-4.0); Potassium, Blood 4.2 mmol/L (3.5-5.5); Total Protein, Blood 6.9 g/dL (6.4-8.2)
[2024-08-06 01:34] LABS: Appearance, Urine Clear (Clear); Color, Urine Yellow (P-Yellow)
[2024-08-06 01:35] LABS: Amorphous Light (0-Heavy); Bacteria Rare /hpf; Red Blood Cells, Urine Not Seen /hpf (0-2); Squamous Epithelial Cells Rare /hpf (Few); White Blood Cells, Urine 0-2 /hpf (0-5)
[2024-08-06] MEDS ORDERED: CEPH500 PO (02:10)
[2024-08-06] MEDS ORDERED: Cipro500 MG PO (02:11)
[2024-08-06] MEDS ORDERED: Nitrofurantoin100 M1 PO (02:11)
[2024-08-06] MEDS ORDERED: MIRALAX17 GM PO (03:18)
== END 2024-08-06 03:32 | disposition home or self-care (01) ==
LOC: ER 00:20
PROVIDERS: Student in an Organized Health Care Education/Training Program
DX: K59.00 Constipation, unspecified (principal); R10.13 Epigastric pain; F17.290 Nicotine dependence, other tobacco product, uncomplicated; Z79.899 Other long term (current) drug therapy
CPT/HCPCS: 74177; 80053; 81001; 83690; 85025; 96360-59; 99284-25; J7030; Q9967

== ENCOUNTER → 2024-09-21 | Outpatient (CLI) | payer MEDICARE, OTHER ==
[~2024-09-21] MED LIST changes: +Cipro500 MG PO; +MIRALAX17 GM PO; +Nitrofurantoin100 M1 PO
[2024-09-22 07:26] LABS: Bacterial Vaginosis PCR Negative (NEGATIVE); Candida Group, PCR NOT DETECTED (NOT DETECT); Candida glabrata-krusei, PCR NOT DETECTED (NOT DETECT)
== END ==
LOC: LAB SHORT 13:40 → LAB 13:40
DX: N89.8 Other specified noninflammatory disorders of vagina (principal)
CPT/HCPCS: 87481; 87661; 87801

== ENCOUNTER 2025-05-06 16:23 | Emergency (ER) | payer MEDICARE, OTHER ==
[~2025-05-06] VITALS: Ht 160 cm; Wt 49.9 kg
[2025-05-06 16:26] VITALS: BP 107/67
== END 2025-05-06 19:06 | disposition home or self-care (01) ==
LOC: ER 16:23
DX: T74.21XA Adult sexual abuse, confirmed, initial encounter (principal); Z79.899 Other long term (current) drug therapy
CPT/HCPCS: A9270; J0696

== ENCOUNTER 2025-05-26 15:56 | Emergency (ER) | payer MEDICARE, OTHER ==
[~2025-05-26] VITALS: Ht 160 cm; Wt 49.9 kg
[2025-05-26 16:33] VITALS: BP 113/69
[2025-05-26 19:24] LABS: BASOPHILS ABSOLUTE AUTO 0.02 K/mm3 (0.00-0.23); BASOPHILS PERCENT AUTO 0 % (0-2); EOSINOPHILS ABSOLUTE AUTO 0.25 K/mm3 (0.00-0.68); EOSINOPHILS PERCENT AUTO 4 % (0-6); Hematocrit 37.7 % (33.0-51.0); Hemoglobin 12.9 g/dL (11.5-16.0); IMMATURE GRAN ABSOLUTE AUTO 0.01 K/mm3 (0.00-0.10); IMMATURE GRAN PERCENT AUTO 0 % (0-1); LYMPHOCYTES ABSOLUTE AUTO 1.59 K/mm3 (0.84-5.20); LYMPHOCYTES PERCENT AUTO 23 % (21-46); MONOCYTES ABSOLUTE AUTO 0.28 K/mm3 (0.16-1.47); MONOCYTES PERCENT AUTO 4 % (4-13); Mean Corpuscular HGB Conc 34.2 g/dL (31.5-36.5); Mean Corpuscular Volume 91 fL (80-100); NEUTROPHILS ABSOLUTE AUTO 4.67 K/mm3 (1.96-9.15); NEUTROPHILS PERCENT AUTO 69 % (41-73); NRBC ABSOLUTE 0.00 K/mm3 (0.00-0.02); NRBC Auto 0.0 /100 WBC (0.0-0.2); Platelet Count 226 K/mm3 (150-400); RDW Coefficient Variation 13.2 % (11.7-14.2); RDW Standard Deviation 42.6 fL (35.1-46.3)
[2025-05-26 19:47] LABS: Alanine Aminotransfer (ALT/SGP 36.0 U/L (12-78); Albumin, Blood 4.1 g/dL (3.4-5.0); Albumin/Globulin Ratio 1.2 (0.8-1.8); Anion Gap 6.0 mmol/L (3-11); Aspartate Aminotrans (AST/SGOT 24.0 U/L (12-37); Bilirubin, Total 0.5 mg/dL (0.1-1.0); Blood Urea Nitrogen 9.0 mg/dL (8-24); CO2, Blood 29.0 mmol/L (21-32); Calcium, Blood 9.3 mg/dL (8.5-10.1); Chloride, Blood 106.0 mmol/L (98-108); Creatinine, Blood 0.74 mg/dL (0.40-1.00); Globulin, Blood 3.4 g/dL (2.2-4.0); Glucose, Blood 118.0 mg/dL (70-99); Potassium, Blood 3.7 mmol/L (3.5-5.5); Sodium, Blood 137.0 mmol/L (136-145); Total Protein, Blood 7.5 g/dL (6.4-8.2)
== END 2025-05-26 20:30 | disposition home or self-care (01) ==
LOC: ER 15:56
PROVIDERS: Student in an Organized Health Care Education/Training Program
DX: S09.90XA Unspecified injury of head, initial encounter (principal); F17.210 Nicotine dependence, cigarettes, uncomplicated; Z79.899 Other long term (current) drug therapy; Y04.8XXA Assault by other bodily force, initial encounter
CPT/HCPCS: 36415; 70450; 80053; 84703; 85025; 99284-25

== ENCOUNTER 2025-06-18 10:57 | Emergency (ER) | payer MEDICARE, OTHER ==
[~2025-06-18] VITALS: Ht 160 cm; Wt 54.4 kg
[2025-06-18 11:10] VITALS: BP 124/66
[2025-06-18 12:22] LABS: Source, Urine Voided
[2025-06-18 12:24] LABS: Bilirubin, Urine Neg (Neg); Color, Urine Yellow (P-Yellow); Glucose Qualitative, Urine Neg (Neg); Ketones, Urine Neg (Neg); Leukocyte Esterase, Urine 3+ (Neg); Protein, Urine 2+ (Neg); Specific Gravity, Urine 1.015 (1.003-1.022); Urobilinogen, Urine NORM (Normal)
[2025-06-18 12:41] LABS: White Blood Cells, Urine 50-100 /hpf (0-5)
[2025-06-18] MEDS ORDERED: CEPH500 PO (13:46)
== END 2025-06-18 13:56 | disposition home or self-care (01) ==
LOC: ER 10:57
PROVIDERS: Emergency Medicine
DX: N39.0 Urinary tract infection, site not specified (principal); T76.21XA Adult sexual abuse, suspected, initial encounter; F17.290 Nicotine dependence, other tobacco product, uncomplicated; Z79.899 Other long term (current) drug therapy
CPT/HCPCS: 81001; 87077; 87086; 87186; 99283

== ENCOUNTER 2025-08-07 13:00 | Observation (INO) | payer MEDICARE, OTHER ==
[~2025-08-07] VITALS: Ht 160 cm; Wt 68.0 kg
[2025-08-07 13:26] VITALS: BP 122/64
[2025-08-07 14:17] LABS: Influenza A, PCR NEGATIVE (NEGATIVE); Influenza B, PCR NEGATIVE (NEGATIVE); Resp Syncytial Virus, PCR NEGATIVE (NEGATIVE); SARS-Cov-2 (COVID-19) PCR, MMC NEGATIVE (NEGATIVE)
[2025-08-07 15:08] LABS: Source, Urine Clean Catch
[2025-08-07] MEDS ORDERED: METHOTREXATE2.510 PO (15:08)
[2025-08-07 15:16] LABS: Bilirubin, Urine Neg (Neg); Color, Urine Yellow (P-Yellow); Glucose Qualitative, Urine Neg (Neg); Ketones, Urine Neg (Neg); Leukocyte Esterase, Urine 2+ (Neg); Protein, Urine Neg (Neg); Specific Gravity, Urine 1.010 (1.003-1.022); Urobilinogen, Urine NORM (Normal)
[2025-08-07 15:42] LABS: Red Blood Cells, Urine 0-2 /hpf (0-2)
[2025-08-07 17:21] LABS: BASOPHILS ABSOLUTE AUTO 0.03 K/mm3 (0.00-0.23); BASOPHILS PERCENT AUTO 0 % (0-2); EOSINOPHILS ABSOLUTE AUTO 0.28 K/mm3 (0.00-0.68); EOSINOPHILS PERCENT AUTO 4 % (0-6); Hematocrit 38.3 % (33.0-51.0); Hemoglobin 12.8 g/dL (11.5-16.0); IMMATURE GRAN ABSOLUTE AUTO 0.03 K/mm3 (0.00-0.10); IMMATURE GRAN PERCENT AUTO 0 % (0-1); LYMPHOCYTES ABSOLUTE AUTO 1.36 K/mm3 (0.84-5.20); LYMPHOCYTES PERCENT AUTO 20 % (21-46); MONOCYTES ABSOLUTE AUTO 0.39 K/mm3 (0.16-1.47); MONOCYTES PERCENT AUTO 6 % (4-13); Mean Corpuscular HGB Conc 33.4 g/dL (31.5-36.5); Mean Corpuscular Volume 95 fL (80-100); NEUTROPHILS ABSOLUTE AUTO 4.74 K/mm3 (1.96-9.15); NEUTROPHILS PERCENT AUTO 70 % (41-73); NRBC ABSOLUTE 0.00 K/mm3 (0.00-0.02); NRBC Auto 0.0 /100 WBC (0.0-0.2); Platelet Count 253 K/mm3 (150-400); RDW Coefficient Variation 12.7 % (11.7-14.2); RDW Standard Deviation 43.8 fL (35.1-46.3)
[2025-08-07 17:45] LABS: Acetaminophen, Random <2.0 ug/mL (10.0-30.0); Alanine Aminotransfer (ALT/SGP 49 U/L (12-78); Albumin, Blood 4.2 g/dL (3.4-5.0); Albumin/Globulin Ratio 1.3 (0.8-1.8); Anion Gap 5 mmol/L (3-11); Aspartate Aminotrans (AST/SGOT 35 U/L (12-37); Bilirubin, Total 0.3 mg/dL (0.1-1.0); Blood Urea Nitrogen 8 mg/dL (8-24); CO2, Blood 29 mmol/L (21-32); Calcium, Blood 9.3 mg/dL (8.5-10.1); Chloride, Blood 108 mmol/L (98-108); Creatinine, Blood 0.77 mg/dL (0.40-1.00); Ethanol (Alcohol), Blood, Med <3 mg/dL; Globulin, Blood 3.3 g/dL (2.2-4.0); Glucose, Blood 97 mg/dL (70-99); Potassium, Blood 4.2 mmol/L (3.5-5.5); Salicylate <1.7 mg/dL (2.8-20.0); Sodium, Blood 138 mmol/L (136-145); Total Protein, Blood 7.5 g/dL (6.4-8.2)
[2025-08-07 18:45] LABS: U Amphetamine Screen Not Detected; U Barbiturate Screen Not Detected; U Benzodiazapine Screen Not Detected; U Buprenorphine Screen Not Detected; U Cannabinoids Screen Not Detected; U Cocaine Screen Not Detected; U Methadone Screen Not Detected; U Methamphetamine Screen Not Detected; U Opiates Screen Not Detected; U Oxycodone Screen Not Detected; U Phencyclidine Screen Not Detected
[2025-08-07 18:53] LABS: Chlamydia Trachomatis Vaginal NOT DETECTED (NOT DETECT); Neisseria Gonorrhoea Vaginal NOT DETECTED (NOT DETECT)
== END 2025-08-07 20:37 | disposition other institution (70) ==
LOC: ER 13:00 → EOR 13:01 → EDBEDREQ 19:17 → EOR 20:37
PROVIDERS: Physician Assistant; ADMIT Emergency Medicine
DX: F22 Delusional disorders (principal); F23 Brief psychotic disorder; F32.A Depression, unspecified; F41.9 Anxiety disorder, unspecified; G40.909 Epilepsy, unspecified, not intractable, without status epilepticus; M06.9 Rheumatoid arthritis, unspecified; F17.290 Nicotine dependence, other tobacco product, uncomplicated; Z79.899 Other long term (current) drug therapy; Z90.49 Acquired absence of other specified parts of digestive tract
CPT/HCPCS: 80053; 80320; 81001; 85025; 87081; 87086; 87430; 87491; 87591; 87637; 93005; 93010; 99285-25; G0480

== ENCOUNTER 2025-08-22 14:31 | Emergency (ER) | payer MEDICARE, OTHER ==
[~2025-08-22] VITALS: Ht 160 cm; Wt 59.0 kg
[~2025-08-22 14:31] MED LIST changes: +ABILIFY MAINTE300 M1 IM
[2025-08-22] MEDS ORDERED: Ketorolac Tromethamine 30mg Vial IM ONE ×2 (14:45→17:45)
[2025-08-22] MEDS ORDERED: CefTRIAXone 1000 MG Vial IM ONE (15:05)
[2025-08-22 15:23] VITALS: BP 149/63
== END 2025-08-22 18:05 | disposition home or self-care (01) ==
LOC: ER 14:31
DX: T74.21XA Adult sexual abuse, confirmed, initial encounter (principal); M54.40 Lumbago with sciatica, unspecified side
CPT/HCPCS: 96372; 99285-25; A9270; J0696; J1885

== ENCOUNTER 2025-09-03 18:27 | Emergency (ER) | payer MEDICARE, OTHER ==
[~2025-09-03] VITALS: Ht 160 cm; Wt 59.9 kg
[2025-09-03] MEDS ORDERED: Ketorolac Tromethamine 30mg Vial IM ONE (19:05)
[2025-09-03] MEDS ORDERED: IBU600 M1 PO (19:09)
[2025-09-03] MEDS ORDERED: CYCL10 PO (19:09)
[2025-09-04] MEDS ORDERED: Lidocaine 4% 1 Patch TOP ONE (00:10)
[2025-09-04] MEDS ORDERED: FAMO20 PO (00:54)
[2025-09-04 01:26] VITALS: BP 137/76
== END 2025-09-04 01:27 | disposition home or self-care (01) ==
LOC: ER 18:27
DX: M54.41 Lumbago with sciatica, right side (principal); M54.42 Lumbago with sciatica, left side; M06.9 Rheumatoid arthritis, unspecified; M32.9 Systemic lupus erythematosus, unspecified; F17.290 Nicotine dependence, other tobacco product, uncomplicated; Z79.899 Other long term (current) drug therapy; Z59.89 Other problems related to housing and economic circumstances
CPT/HCPCS: 72100; 96372; 99283-25; A9270; J1885